=== PATIENT | male | born 1990 | race Caucasian/White ===

== ENCOUNTER 2018-02-19 09:00 | Emergency (ER) | payer MEDICAID ==
[~2018-02-19] VITALS: Ht 200.7 cm; Wt 113.4 kg
[~2018-02-19 09:00] MED LIST: LORADAMED10 MG PO
[2018-02-19] MEDS ORDERED: CLONIDINE HCL0.1 M1 PO (09:24)
== END 2018-02-19 09:31 | disposition home or self-care (01) ==
LOC: ED 09:00
DX: I10 Essential (primary) hypertension (principal); F17.200 Nicotine dependence, unspecified, uncomplicated; Z79.899 Other long term (current) drug therapy
CPT/HCPCS: 99283